=== PATIENT | female | born 1965 | race African-American/Black ===

== ENCOUNTER → 2020-03-14 | Outpatient (CLI) | payer OTHER, MEDICAID ==
[~2020-03-14] MED LIST: SUMA20SP PO
== END | disposition home or self-care (01) ==
LOC: LAB 07:02
PROVIDERS: ATTEND Surgery
DX: Z01.818 Encounter for other preprocedural examination (principal); Z11.59 Encounter for screening for other viral diseases
CPT/HCPCS: 87635; C9803

== ENCOUNTER → 2020-03-15 | Day surgery (SDC) | payer OTHER ==
[~2020-03-15] MED LIST changes: +LIDOCAINE HCL 1% 20ML VIAL (Pyxis) INJ ONE; +SODIUM BICARBONATE 4% (2.4MEQ) 5ML VIAL IV ONE
== END | disposition home or self-care (01) ==
LOC: EDUNIT# 03-04 10:00 → RAD 09:39
PROVIDERS: ATTEND Surgery
DX: R92.1 Mammographic calcification found on diagnostic imaging of breast (principal); N63.20 Unspecified lump in the left breast, unspecified quadrant; Z79.899 Other long term (current) drug therapy
CPT/HCPCS: 19281; J3490

== ENCOUNTER 2020-03-18 06:26 | Day surgery (SDC) | payer OTHER ==
[~2020-03-18] VITALS: Ht 170.2 cm; Wt 69.4 kg
[~2020-03-18 06:26] MED LIST changes: -LIDOCAINE HCL 1% 20ML VIAL (Pyxis) INJ ONE; -SODIUM BICARBONATE 4% (2.4MEQ) 5ML VIAL IV ONE
[2020-03-18] MEDS ORDERED: BUPIVACAINE HCL 0.5% (5MG/ML) 50ML ONE (07:42)
[2020-03-18] MEDS ORDERED: SKIN ADHESIVE 0.7 GM EA TOP ONE (07:42)
[2020-03-18 07:48] LABS: UCG SCREEN NEGATIVE
[2020-03-18] MEDS ORDERED: FENTANYL CITRATE/PF 50MCG/ML 2ML VIAL ONE (08:36)
[2020-03-18] MEDS ORDERED: MIDAZOLAM HCL 2 MG/2 ML VIAL ONE (08:36)
[2020-03-18] MEDS ORDERED: PROPOFOL 200MG/20ML VIAL IV ONE (08:37)
[2020-03-18] MEDS ORDERED: ROCURONIUM BROMIDE 10MG/ML VIAL 5ML IV ONE (08:37)
[2020-03-18] MEDS ORDERED: SUCCINYLCHOLINE CHLORIDE 200MG/10ML IV ONE (08:37)
[2020-03-18] MEDS ORDERED: LIDOCAINE HCL/PF 1% 10 MG/ML 5ML VIAL ONE (08:38)
[2020-03-18] MEDS ORDERED: CEFAZOLIN SODIUM 1000MG/VIAL ONE (08:53)
[2020-03-18] MEDS ORDERED: EPHEDRINE SULFATE 50MG/ML VIAL ONE (09:06)
[2020-03-18] MEDS ORDERED: DEXAMETHASONE 4MG/ML 1ML VIAL ONE (09:20)
[2020-03-18] MEDS ORDERED: ONDANSETRON HCL 4MG/2ML INJ ONE (09:22)
[2020-03-18] MEDS ORDERED: HYDROMORPHONE HCL/PF 2MG/ML CPJ IV PRN (10:00)
[2020-03-18] MEDS ORDERED: LACTATED RINGERS 1,000 ML IV SCH (10:30)
== END 2020-03-18 11:51 | disposition home or self-care (01) ==
LOC: OR 06:26
PROVIDERS: ATTEND Surgery
DX: N63.20 Unspecified lump in the left breast, unspecified quadrant (principal); Z79.899 Other long term (current) drug therapy; Z98.890 Other specified postprocedural states
CPT/HCPCS: 19120; 81025; J0330; J0690; J1100; J2250; J2405; J2704; J3010; J3490